=== PATIENT | male | born 1975 | race Caucasian/White ===

== ENCOUNTER 2019-03-26 05:42 | Day surgery (SDC) | payer SELFPAY ==
[~2019-03-26] VITALS: Ht 175.3 cm; Wt 88.5 kg
[2019-03-26] VITALS (11 sets, daily range): BP systolic 107–121; BP diastolic 60–78
[2019-03-26] MEDS ORDERED: NKM (06:18)
[2019-03-26] MEDS ORDERED: Metoprolol 5mg/5ml Inj ONE (07:00)
[2019-03-26] MEDS ORDERED: NS Irrig 1000ml ONE (07:00)
[2019-03-26] MEDS ORDERED: Sterile Water Irrig 1000ml IRRIG ONE (07:00)
[2019-03-26] MEDS ORDERED: LR 1000ml ONE (07:00)
[2019-03-26] MEDS ORDERED: ceFAZolin sod 1 GM in NS 55 ML IVPB ONE (07:00)
[2019-03-26] MEDS ORDERED: Succinylcholine 20mg/ml 10ml vial ONE (07:02)
[2019-03-26] MEDS ORDERED: Rocuronium Bromide 50mg/5ml Inj IV ONE (07:02)
[2019-03-26] MEDS ORDERED: cefOXitin 2gm Inj ONE (07:02)
[2019-03-26] MEDS ORDERED: Iothalamate Meglumine 60% 30ML INJ ONE (07:08)
[2019-03-26] MEDS ORDERED: fentaNYL 100 mcg/2 mL IV ONE (07:13)
[2019-03-26] MEDS ORDERED: Midazolam 2mg/2ml Inj ONE (07:13)
[2019-03-26] MEDS ORDERED: Propofol 200mg/20ml IV ONE (07:17)
[2019-03-26] MEDS ORDERED: Lidocaine 1% MPF 10mg/ml 5ml ONE (07:17)
[2019-03-26] MEDS ORDERED: NS Irrig 4000ml IRRIG ONE ×4 (07:34→07:46)
--- NOTE | 2019-03-26 07:47 | Pre-Procedure Note/Attestation ---
Pre-Procedure Note/Attestation Complete Prior to Procedure Planned Procedure: right Procedure Narrative: RIRS ESWL Stent change right side Indications for Procedure Pre-Operative Diagnosis: residual kidney stones Attestation I attest that I discussed the nature of the procedure; its benefits; risks and complications; and alternatives (and the risks and benefits of such alternatives ), prior to the procedure, with the patient (or the patient's legal national account representative). I attest that, if there was a reasonable possibility of needing a blood transfusion, the patient (or the patient's legal national account representative) was given the [facility] standardized written summary, pursuant to the Erasto Blake Blood Safety Act ([place] Health and Safety Code # 1645, as amended). I attest that I re-evaluated the patient just prior to the surgery and that there has been no change in the patient's H&P, except as documented below: Roman Ontiveros MD Mar 26, 2019 07:47
[2019-03-26] MEDS ORDERED: Morphine Sulfate 10mg/ml Inj ONE (08:18)
[2019-03-26] MEDS ORDERED: Neostigmine 1mg/ml 10ml Inj ONE (08:19)
[2019-03-26] MEDS ORDERED: Glycopyrrolate 0.2mg/ml 1ml Vial ONE (08:19)
[2019-03-26] MEDS ORDERED: Meperidine 50mg/ml Inj(FOR RIGORS ONLY) IV PRN (08:30)
[2019-03-26] MEDS ORDERED: DiphenhydrAMINE 50mg/ml Inj IVP PRN (08:30)
[2019-03-26] MEDS ORDERED: LR 1000ml 1,000 ML IVLG SCH (08:30)
[2019-03-26] MEDS ORDERED: Ketorolac 30mg Inj IV PRN (08:30)
--- NOTE | 2019-03-26 08:30 | Anethesia Preoperative Eval ---
Anesthesia Pre-op PMH/ROS General Date of Evaluation: Mar 26, 2019 Time of Evaluation: 07:10 Anesthesiologist: Alyssa ASA Score: ASA 2 Mallampati Score Class I : Soft palate, uvula, fauces, pillars visible Class II: Soft palate, uvula, fauces visible Class III: Soft palate, base of uvula visible Class IV: Only hard plate visible Mallampati Classification: Class II Surgeon: Rama Diagnosis: R kidney stone Surgical Procedure: Cysto ECWL Anesthesia History: none Family History: no anesthesia problems Allergies: Coded Allergies: No Known Allergies (Unverified , 03/26/19) Medications: see eMAR Patient NPO?: Yes Past Medical History Cardiovascular: Denies: HTN, CAD, CT, valve dz, arrhythmia, other Pulmonary: Denies: asthma, COPD, DAVID, other Gastrointestinal/Genitourinary: Reports: GERD - mild, other - Kidney stones; Denies: CRI, ESRD Neurologic/Psychiatric: Denies: dementia, CVA, depression/anxiety, TIA, other Endocrine: Denies: DM, hypothyroidism, steroids, other HEENT: Denies: cataract (L), cataract (R), glaucoma, [place] (L), [place] (R), other Hematology/Immune: Denies: anemia, DVT, bleeding disorder, other Musculoskeletal/Integumentary: Denies: OA, RA, DJD, DDD, edema, other PMH Narrative: as above PSxH Narrative: Lithotripsy Anesthesia Pre-op Phys. Exam Physician Exam Last Vital Signs Date Time Temp Pulse Resp B/P (MAP) Pulse Ox O2 Delivery O2 Flow Rate FiO2 03/26/19 06:20 Room Air 03/26/19 06:10 97.1 67 18 114/70 100 Constitutional: NAD, other Neurologic: CN 2-12 intact Cardiovascular: RRR, no M/R/G Respiratory: CTA Gastrointestinal: S/NT/ND Airway Exam Mallampati Score: Class II MO: full Neck: flexible ROM: full Teeth: intact Dentures: no upper, no lower Anesthesia Pre-op A/P Labs see chart Studies Pre-op Studies: EKG - NSR Risk Assessment & Plan Assessment: ASA 2 Plan: GA with ETT Status Change Before Surgery: No Pre-Antibiotics Drug: Cefoxitn 2 gr Given Within 1 Hr of Incision: Yes Time Given: 08:12 Rocael Shah MD Mar 26, 2019 08:30
--- NOTE | 2019-03-26 10:03 | Brief Operative Note ---
Immediate Post Operative Note Operative Note Pre-op Diagnosis: residual kidney stones Procedure: rirs eswl stent placement Post-op Diagnosis: same Post-op Diagnosis: same as pre-op Surgeon: Timur Ontiveros Anesthesia: general Specimen: yes Complications: none Condition: stable Fluids: 1000 Estimated Blood Loss: minimal Implant(s) used?: No Roman Ontiveros MD Mar 26, 2019 10:03
[2019-03-26] MEDS ORDERED: Tylenol #3 tab (300mg/30mg) ORAL PRN (10:15)
[2019-03-26] MEDS ORDERED: HYDROcodone/Acetamin 5/325 tab ORAL PRN (10:15)
[2019-03-26] MEDS ORDERED: HYDROmorphone 1mg/ml Carpuject SUBQ PRN (10:15)
--- NOTE | 2019-03-26 11:44 | Immediate Post-Op Evaluation ---
Immediate Post-Op Evalulation Immediate Post-Op Evalulation Procedure: Cysto Laser lithotripsy, ESWL stent placement Date of Evaluation: Mar 26, 2019 Time of Evaluation: 10:20 IV Fluids: 1700 Blood Products: none Estimated Blood Loss: N/A Urinary Output: n/a Blood Pressure Systolic: 116 Blood Pressure Diastolic: 58 Pulse Rate: 72 Respiratory Rate: 22 O2 Sat by Pulse Oximetry: 98 Temperature (Fahrenheit): 97.6 Pain Score (1-10): 2 Nausea: No Vomiting: No Complications none Patient Status: reacts, patent, extubated, none Hydration Status: adequate Rocael Shah MD Mar 26, 2019 11:43
--- NOTE | 2019-03-26 11:45 | 48 Hour Post Anesthesia Eval ---
Post Anesthesia Evaluation Procedure: Cysto Laser lithotripsy, ESWL stent placement Date of Evaluation: Mar 26, 2019 Time of Evaluation: 11:44 Blood Pressure Systolic: 112 0: 68 Pulse Rate: 74 Respiratory Rate: 20 Temperature (Fahrenheit): 97.6 O2 Sat by Pulse Oximetry: 98 Airway: patent Nausea: No Vomiting: No Pain Intensity: 2 Hydration Status: adequate Cardiopulmonary Status: stable Mental Status/LOC: patient returned to baseline Follow-up Care/Observations: n/a Post-Anesthesia Complications: none Follow-up care needed: ready to discharge Rocael Shah MD Mar 26, 2019 11:45
[2019-03-26] MEDS ORDERED: D5 1/2NS 1,000 ML IV SCH (13:00)
--- NOTE | 2019-03-29 23:01 | Operative Note - Dictated ---
DATE OF OPERATION: 03/26/2019 PREOPERATIVE DIAGNOSES: Residual right renal stone, stones in the right distal ureter, and retained double-J stent. POSTOPERATIVE DIAGNOSES: Residual right renal stone, stones in the right distal ureter, and retained double-J stent. OPERATION: Cystoscopy, removal of the old double-J stent, semi-rigid ureteroscopy with laser lithotripsy of the multiple stones obstructing the distal right ureter, extracorporeal shock wave lithotripsy of the large 8 mm fragment. OPERATED BY: Roman Ontiveros M.D. ANESTHESIA: General. FINDINGS: As above. INDICATION FOR SURGERY: The patient had a large 2 cm renal stone, which was broken with extracorporeal shock wave lithotripsy. He as well as residual stones in the kidney. He has a retained double-J stent. The patient tolerated the previous surgery well but procedure with the above findings. All potential complications were explained. He signed a consent. PROCEDURE IN DETAIL: He was brought to the operating room, placed in lithotomy position, prepped and draped in standard fashion. Cystoscope was introduced, and the old stent was grasped and removed. Guidewire was placed into the right ureter using a semi-rigid ureteroscope. Stone was localized in the distal right ureter. Using 360 micron fiber, the stone was broken into small pieces and removed with Nitinol basket for pathologic examination. After that, extracorporeal shock wave lithotripsy of the stone in the right kidney under direct fluoroscopic and flexible ureteroscopic guidance was done. The stones were fragmented into small pieces and all of them were removed for examination. Double-J stent was placed. The retrograde was normal. No evidence of perforations. The patient tolerated the procedure well. Thomas catheter was placed. The patient was transferred to the recovery room in stable condition. Roman Ontiveros M.D. DR: CATRACHO JOB#: [id number] CC:
== END 2019-03-26 11:50 | disposition home or self-care (01) ==
LOC: MERGE 05:42 → SUR 05:42
DX: N20.2 Calculus of kidney with calculus of ureter (principal)
CPT/HCPCS: 52356; J0330; J0694; J1885; J1940; J2250; J2270; J2704; J2710; J3010; Q9961; 94003; 94150